=== PATIENT | female | born 1995 | race Caucasian/White ===

== ENCOUNTER 2020-01-30 07:32 | Emergency (ER) | payer OTHER ==
[2020-01-30 07:56] VITALS: BP 137/75
--- NOTE | 2020-01-30 08:12 | UC ---
FLU HPI - HPI Summary HPI Summary: 24-year-old female presents with 3 day history of nasal congestion, postnasal drip, and sore throat. States last night developed a fever of 101.3 F. Denies ear pain, dysphagia, chest pain, cough, shortness of breath, abdominal pain, nausea, vomiting, or diarrhea. - History of Current Complaint Chief Complaint: UCRespiratory Stated Complaint: ST Time Seen by Provider: 01/30/20 08:03 Hx Obtained From: Patient Hx Last Menstrual Period: 01/20/20 Pain Intensity: 7 - Allergy/Home Medications Allergies/Adverse Reactions: Allergies Allergy/AdvReac Type Severity Reaction Status Date / Time No Known Allergies Allergy Verified 01/30/20 07:56 Home Medications: Home Medications D-Methorphan/PE/Acetaminophen [Cold Multi-Symptom Gelcap] 2 mg PO BID 01/30/20 [ History Confirmed 01/30/20] PMH/Surg Hx/FS Hx/Imm Hx Previously Healthy: Yes - Denies significant PHM - Surgical History Surgical History: Yes Surgery Procedure, Year, and Place: tubes placed in both ears 1996 - Family History Known Family History: Positive: Non-Contributory - Social History Occupation: Student Lives: Dormitory/Roommates Alcohol Use: Occasionally Substance Use Type: Marijuana Smoking Status (MU): Never Smoked Tobacco Review of Systems All Other Systems Reviewed And Are Negative: Yes Physical Exam - Summary Physical Exam Summary: GENERAL APPEARANCE: Well developed, well nourished, alert and cooperative, and appears to be in no acute distress. EYES: Conjunctiva clear. No drainage. EARS: External auditory canals and tympanic membranes clear, hearing grossly intact. NOSE: Moderated nasal congestion. Clear nasal discharge. THROAT: Pharyngeal erythema. 3+ tonsils without exudate or lesions. Uvula midline. NECK: Neck supple, non-tender without lymphadenopathy. CARDIAC: Normal S1 and S2. No S3, S4 or murmurs. Rhythm is regular. There is no peripheral edema, cyanosis or pallor. Extremities are warm and well perfused. Capillary refill is less than 2 seconds. Peripheral pulses intact. LUNGS: Clear to auscultation without rales, rhonchi, wheezing or diminished breath sounds. ABDOMEN: Positive bowel sounds. Soft, nondistended, nontender. No guarding or rebound. No masses or hepatosplenomegally. MUSKULOSKELETAL: ROM intact to all extremities. No joint erythema or tenderness. Normal muscular development. Normal gait. SKIN: Skin normal color, texture and turgor with no lesions or eruptions. Triage Information Reviewed: Yes Vital Signs: Initial Vital Signs Temp 98.8 F 01/30/20 07:48 Pulse 104 01/30/20 07:48 Resp 20 01/30/20 07:48 BP 137/75 01/30/20 07:48 Pulse Ox 100 01/30/20 07:48 Vital Signs Reviewed: Yes Flu Course/Dx - Course Course Of Treatment: 24-year-old female presents with 3 day history of nasal congestion, postnasal drip, and sore throat. States last night developed a fever of 101.3 F. Denies ear pain, dysphagia, chest pain, cough, shortness of breath, abdominal pain, nausea, vomiting, or diarrhea. Afebrile. Hypertensive and tachycardic otherwise vital signs stable. Patient had moderate nasal congestion, normal TMs , 3+ tonsils without exudate, negative cervical lymphadenopathy, clear bilateral breath sounds, and otherwise unremarkable exam. Rapid strep test and rapid flu test were negative. Recommend symptomatic treatment for a viral upper respiratory infection. She is to follow-up with her primary care provider in 5-7 days if symptoms are persisting. Anticipatory guidance regarding symptoms reviewed with the patient. Verbalized understanding and agrees with plan of care. - Differential Dx/Diagnosis Differential Diagnosis/HQI/PQRI: Bronchitis, Influenza, Pneumonia, Upper Respiratory Infection, Other - Pharyngitis Provider Diagnosis: Viral URI Discharge ED - Sign-Out/Discharge Documenting (check all that apply): Patient Departure All imaging exams completed and their final reports reviewed: No Studies - Discharge Plan Condition: Stable Disposition: HOME Patient Education Materials: Upper Respiratory Infection (ED) Referrals: Jim Hernandez MD [Primary Care Provider] - Additional Instructions: The flu test and strep test performed in the clinic today was negative. Get plenty of rest. Drink plenty of fluids to avoid dehydration especially if you are running any fever. Take over the counter acetaminophen (Tylenol) or ibuprofen (Advil, Motrin) according to directions as needed for pain or fever. Use an over the counter decongestant such as Sudafed according to directions to help with the congestion. Use salt water gargles several times a day if you have a sore throat. You may also use Chloraseptic spray or Cepacol lonzenges according to directions which contain a numbing medication and can provide some temporary relief from your sore throat. Follow up with your primary care provider in 5-7 days if symptoms persist. Seek immediate medical attention in the emergency room if you have fever greater than 100.5 F despite taking acetaminophen or ibuprofen, have chest pain , difficulty breathing, are unable to swallow, or have any worsening of symptoms. - Billing Disposition and Condition Condition: STABLE Disposition: Home - Attestation Statements Provider Attestation: Chart has been reviewed. I did not see the patient but was available for consult. EK.
[2020-01-30 08:25] LABS: Influenza A Molecular Negative (Negative); Influenza B Molecular Negative (Negative)
== END 2020-01-30 08:38 | disposition home or self-care (01) ==
LOC: UCCORT 07:32
DX: J06.9 Acute upper respiratory infection, unspecified (principal)
CPT/HCPCS: 87651; 99201; G0463